=== PATIENT | male | born 1930 | race Caucasian/White ===

== ENCOUNTER 2017-04-28 10:33 | Emergency (ER) | payer MEDICARE, BC ==
[2017-04-28] MEDS ORDERED: FENTANYL 100MCG/2ML SOL IV ONE (10:35)
[2017-04-28] MEDS ORDERED: FENTANYL 100MCG/2ML SOL ONE (10:36)
[2017-04-28] MEDS ORDERED: SODIUM CHLORIDE 0.9% FLUSH 10 ML SOL IV PRN (10:43)
[2017-04-28 10:49] LABS: BASOPHILS % (AUTO) 1 % (0-3); EOSINOPHILS % (AUTO) 2 % (0-9); HEMATOCRIT 41 % (39-53); MEAN CORPUSCULAR HGB CONC 33.9 gm/dl (32.0-36.0); MEAN CORPUSCULAR VOLUME 93 fL (80-100); MONOCYTES % (AUTO) 8.9 % (0-12); NEUTROPHILS % (AUTO) 51.5 % (37-80)
[2017-04-28 10:55] LABS: CALCIUM 9.2 mg/dl (8.5-10.1); POTASSIUM 4.4 mMol/L (3.5-5.1)
[2017-04-28] MEDS ORDERED: HYDROMORPHONE HCL 2 MG/ML SOL IV ONE ×2 (10:59→11:22)
[2017-04-28] MEDS ORDERED: HYDROMORPHONE HCL 2 MG/ML SOL ONE ×2 (11:00→11:23)
[2017-04-28] MEDS ORDERED: LACTATED RINGERS 1,000 ML IV ONE (11:15)
[2017-04-28] MEDS ORDERED: SODIUM CHLORIDE 0.9% 500 ML 500 ML IV ONE (11:20)
[2017-04-28 11:21] VITALS: RESP 24
[2017-04-28] MEDS ORDERED: TDAP VACCINE 0.5 ML SUS IM ONE ×2 (11:36→11:37)
[2017-04-28 11:42] LABS: APPEARANCE,URINE Clear; BILIRUBIN,URINE NEGATIVE (NEGATIVE); COLOR,URINE Yellow; GLUCOSE, URINE (UA) NEGATIVE (NEGATIVE); KETONES,URINE NEGATIVE (NEGATIVE); LEUKOCYTE ESTERASE ,URINE NEGATIVE (NEGATIVE); NITRATE,URINE NEGATIVE (NEGATIVE); OCCULT BLOOD,URINE TRACE INTACT (NEG-TRACE); PH,URINE 6.5; UROBILINOGEN,URINE 0.2 (0.2-1.0 EU)
[2017-04-28 11:54] LABS: RBC,URINE 0-3 (0-3AV/HPF); WBC,URINE 0-2 (0-5AV/HPF)
[2017-04-28 12:05] VITALS: BP 184/89; PULSE 88; TEMP 98.8; O2SAT 99
== END 2017-04-28 12:25 | disposition short-term general hospital (02) | DRG 536 ==
LOC: ED 10:33
DX: S72.142A Displaced intertrochanteric fracture of left femur, initial encounter for closed fracture (principal); E87.1 Hypo-osmolality and hyponatremia; E86.0 Dehydration; W00.0XXA Fall on same level due to ice and snow, initial encounter; S50.02XA Contusion of left elbow, initial encounter; I10 Essential (primary) hypertension
CPT/HCPCS: 36415; 73070; 73501; 80048; 81001; 85025; 85610; 90715; 93005; 99285; G0390; J1170; J3010

== ENCOUNTER 2017-05-24 12:58 | Outpatient (CLI) | payer MEDICARE, BC ==
[2017-04-28 12:05] VITALS: O2SAT 99
== END 2017-05-24 12:59 | disposition home or self-care (01) | DRG 561 ==
LOC: CONVCARE 12:58
PROVIDERS: ATTEND Orthopaedic Surgery
DX: S72.22XD Displaced subtrochanteric fracture of left femur, subsequent encounter for closed fracture with routine healing (principal)
CPT/HCPCS: 73502

== ENCOUNTER 2017-06-21 09:40 | Outpatient (CLI) | payer MEDICARE, BC ==
[2017-04-28 12:05] VITALS: O2SAT 99
== END 2017-06-21 09:41 | disposition home or self-care (01) | DRG 561 ==
LOC: RAD 09:40
PROVIDERS: ATTEND Orthopaedic Surgery
DX: S72.8X2D Other fracture of left femur, subsequent encounter for closed fracture with routine healing (principal); I70.90 Unspecified atherosclerosis; M85.88 Other specified disorders of bone density and structure, other site
CPT/HCPCS: 73502

== ENCOUNTER 2017-07-19 11:05 | Outpatient (CLI) | payer MEDICARE, BC ==
[2017-04-28 12:05] VITALS: O2SAT 99
== END 2017-07-19 11:06 | disposition home or self-care (01) | DRG 561 ==
LOC: RAD 11:05
PROVIDERS: ATTEND Orthopaedic Surgery
DX: S72.22XD Displaced subtrochanteric fracture of left femur, subsequent encounter for closed fracture with routine healing (principal); Z98.890 Other specified postprocedural states
CPT/HCPCS: 73502

== ENCOUNTER 2017-09-13 12:37 | Outpatient (CLI) | payer MEDICARE, BC, MEDICAID ==
[2017-04-28 12:05] VITALS: O2SAT 99
== END 2017-09-13 12:38 | disposition home or self-care (01) | DRG 560 ==
LOC: CONVCARE 12:37
PROVIDERS: ATTEND Orthopaedic Surgery
DX: S72.142D Displaced intertrochanteric fracture of left femur, subsequent encounter for closed fracture with routine healing (principal); T84.328A Displacement of other bone devices, implants and grafts, initial encounter
CPT/HCPCS: 73502

== ENCOUNTER 2017-10-18 10:26 | Outpatient (CLI) | payer OTHER ==
[2017-04-28 12:05] VITALS: O2SAT 99
[2017-10-18 12:51] LABS: BASOPHILS % (AUTO) 2 % (0-3); EOSINOPHILS % (AUTO) 6 % (0-9); HEMATOCRIT 35 % (39-53); HEMOGLOBIN 12.1 gm/dl (13.5-17.7); LYMPHOCYTES % (AUTO) 25.6 % (10-50); MEAN CORPUSCULAR HEMOGLOBIN 30.6 pg (27.0-32.0); MEAN CORPUSCULAR HGB CONC 34.6 gm/dl (32.0-36.0); MEAN CORPUSCULAR VOLUME 88 fL (80-100); MONOCYTES % (AUTO) 10.4 % (0-12); NEUTROPHILS % (AUTO) 56.5 % (37-80)
== END 2017-10-18 10:27 | disposition home or self-care (01) | DRG 949 ==
LOC: CONVCARE 10:26
PROVIDERS: ATTEND Orthopaedic Surgery
DX: T84.12 Displacement of internal fixation device of bones of limb (principal); S72.142K Displaced intertrochanteric fracture of left femur, subsequent encounter for closed fracture with nonunion; S72.22XK Displaced subtrochanteric fracture of left femur, subsequent encounter for closed fracture with nonunion
CPT/HCPCS: 36415; 73502; 85025; 85651

== ENCOUNTER 2017-10-21 12:31 | Outpatient (CLI) | payer OTHER ==
[2017-04-28 12:05] VITALS: O2SAT 99
== END 2017-10-21 12:32 | disposition home or self-care (01) | DRG 950 ==
LOC: CONVCARE 12:31
PROVIDERS: ATTEND Orthopaedic Surgery
DX: T84.84XD Pain due to internal orthopedic prosthetic devices, implants and grafts, subsequent encounter (principal)
CPT/HCPCS: 87070; 87075

== ENCOUNTER 2017-12-06 10:36 | Outpatient (CLI) | payer OTHER ==
[2017-04-28 12:05] VITALS: O2SAT 99
== END 2017-12-06 10:37 | disposition home or self-care (01) | DRG 561 ==
LOC: CONVCARE 10:36
PROVIDERS: ATTEND Orthopaedic Surgery
DX: Z47.1 Aftercare following joint replacement surgery (principal); Z96.642 Presence of left artificial hip joint
CPT/HCPCS: 73502

== ENCOUNTER 2018-02-07 10:17 | Outpatient (CLI) | payer OTHER ==
[2017-04-28 12:05] VITALS: O2SAT 99
== END 2018-02-07 10:18 | disposition home or self-care (01) | DRG 561 ==
LOC: RAD 10:17
PROVIDERS: ATTEND Orthopaedic Surgery
DX: Z47.1 Aftercare following joint replacement surgery (principal); Z96.642 Presence of left artificial hip joint
CPT/HCPCS: 73502

== ENCOUNTER 2018-04-11 10:48 | Outpatient (CLI) | payer OTHER ==
[2017-04-28 12:05] VITALS: O2SAT 99
== END 2018-04-11 10:49 | disposition home or self-care (01) | DRG 951 ==
LOC: CONVCARE 10:48
PROVIDERS: ATTEND Orthopaedic Surgery
DX: Z98.890 Other specified postprocedural states (principal)
CPT/HCPCS: 73502

== ENCOUNTER 2018-05-22 23:24 | Emergency (ER) | payer OTHER ==
[2018-05-22] MEDS ORDERED: SODIUM CHLORIDE 0.9% 1000 ML SOL IV SCH (23:45)
[2018-05-22] MEDS ORDERED: ONDANSETRON HCL 4 MG/2 ML SOL IV ONE (23:50)
[2018-05-22] MEDS ORDERED: CEFTRIAXONE 1 GM PDS 1 GM in SODIUM CHLORIDE 0.9% 50 ML 50 ML IV ONE (23:50)
[2018-05-22] MEDS ORDERED: CEFTRIAXONE 1 GM PDS ONE (23:59)
[2018-05-23 00:20] LABS: HEMATOCRIT 34 % (39-53); HEMOGLOBIN 11.1 gm/dl (13.5-17.7); MEAN CORPUSCULAR HEMOGLOBIN 29.7 pg (27.0-32.0); MEAN CORPUSCULAR HGB CONC 32.7 gm/dl (32.0-36.0); MEAN CORPUSCULAR VOLUME 91 fL (80-100)
[2018-05-23 00:24] LABS: CARBON DIOXIDE 23.6 mEq/L (21-32); CREATININE 1.43 mg/dl (0.80-1.30)
[2018-05-23 00:34] LABS: BAND NEUTROPHILS % (MANUAL) 16 %; BASOPHILS % (MANUAL) 2 % (0-3); EOSINOPHILS % (MANUAL) 1 % (0-9); LYMPHOCYTES % (MANUAL) 19 % (10-50); MONOCYTES % (MANUAL) 2 % (0-12); NEUTROPHILS % (MANUAL) 60 % (37-80); NORMAL RBCS PRESENT
[2018-05-23 00:48] VITALS: RESP 18
[2018-05-23 01:13] VITALS: TEMP 97.8
[2018-05-23 01:25] VITALS: BP 130/68; PULSE 76; O2SAT 91
== END 2018-05-23 01:55 | DRG 690 ==
LOC: SUPCPDRO 23:24 → ED 23:24
DX: N39.0 Urinary tract infection, site not specified (principal)
CPT/HCPCS: 80048; 85007; 85027; 96365; 99070; 99283; J0696

== ENCOUNTER 2018-09-18 01:32 | Emergency (ER) | payer OTHER ==
[2018-09-18 01:59] VITALS: TEMP 97.6
[2018-09-18] MEDS ORDERED: LORAZEPAM 0.5 MG TAB PO ONE (02:00)
[2018-09-18] MEDS ORDERED: APAP/OXYCODONE 1 EACH TABLET PO ONE (02:01)
[2018-09-18] MEDS ORDERED: APAP/OXYCODONE 1 EACH TABLET ONE (02:02)
[2018-09-18] MEDS ORDERED: LORAZEPAM 0.5 MG TAB ONE (02:11)
[2018-09-18 03:02] LABS: BASOPHILS % (AUTO) 1 % (0-3); EOSINOPHILS % (AUTO) 3 % (0-9); HEMATOCRIT 33 % (39-53); HEMOGLOBIN 11.3 gm/dl (13.5-17.7); LYMPHOCYTES % (AUTO) 18.6 % (10-50); MEAN CORPUSCULAR HEMOGLOBIN 30.2 pg (27.0-32.0); MEAN CORPUSCULAR HGB CONC 33.9 gm/dl (32.0-36.0); MEAN CORPUSCULAR VOLUME 89 fL (80-100); MONOCYTES % (AUTO) 8.4 % (0-12); NEUTROPHILS % (AUTO) 69.1 % (37-80)
[2018-09-18 03:15] VITALS: RESP 24
[2018-09-18 04:06] LABS: SEDIMENTATION RATE 48 mm/hr (0-15)
[2018-09-18] MEDS ORDERED: TRAMADOL HYDROCHLORIDE 50 MG TAB PO ONE (04:39)
[2018-09-18] MEDS ORDERED: TRAMADOL HYDROCHLORIDE 50 MG TAB ONE (04:41)
[2018-09-18 04:46] VITALS: O2SAT 94
[2018-09-18 05:01] VITALS: BP 176/74; PULSE 87
== END 2018-09-18 04:55 | DRG 556 ==
LOC: ED 01:32
DX: M25.551 Pain in right hip (principal); M54.9 Dorsalgia, unspecified
CPT/HCPCS: 36415; 73502; 85025; 85651; 99283; 99284; A9270-GY